=== PATIENT | male | born 1980 | race American Indian/Alaskan Native ===

== ENCOUNTER 2019-02-28 22:52 | Emergency (ER) | payer OTHER ==
--- NOTE | 2019-02-28 22:57 | Emergency Department Report ---
Stated Complaint: LEFT PINKY PAIN/L ARM LACERATION Time Seen by Provider: 02/28/19 22:57 - HPI History of Present Illness: SP FALL FROM SEVERAL INCHES CO L ELBOW PAIN/LAC AND L 5TH DIGIT PAIN RX NONE MSE COMPLETED MSE screening note: Focused history and physical exam performed. Due to findings the following was ordered: ED Disposition for MSE Condition: Stable
[2019-02-28] MEDS ORDERED: TRIPLE ANTIBIOTIC TP ONE (22:58)
[2019-02-28] MEDS ORDERED: XYLOCAINE 1% 20 mL INFILTRATI ONE (22:58)
[2019-02-28] MEDS ORDERED: BOOSTRIX IM ONE (22:58)
[2019-02-28] MEDS ORDERED: NACL 0.9% IR ONE (22:58)
[2019-03-01] MEDS ORDERED: BOOSTRIX IM ONE (01:43)
[2019-03-01] MEDS ORDERED: NACL 0.9% 500 ML IR ONE (01:43)
[2019-03-01] MEDS ORDERED: TRIPLE ANTIBIOTIC TP ONE (01:43)
[2019-03-01] MEDS ORDERED: XYLOCAINE 1% 20 mL ONE (01:45)
[2019-03-01] MEDS ORDERED: PERCOCET 5/325 PO ONE (02:09)
--- NOTE | 2019-03-01 02:29 | Emergency Department Report ---
ED Fall HPI - General Chief Complaint: Fall Stated Complaint: LEFT PINKY PAIN/L ARM LACERATION Time Seen by Provider: 02/28/19 22:57 Source: patient Mode of arrival: Ambulatory - History of Present Illness Initial Comments: 38-year-old -[place] male reports that he fell off a ladder 3 steps off the ground while at work. Patient sustained a left forearm laceration and left pinky pain. Patient reports no past medical history currently takes no medications on a daily basis and has no known drug allergies. MD Complaint: fall -: This afternoon Fall From: standing, down stairs (#) (3) When Fall Occurred: just prior to arrival Fall Witnessed: yes, by bystander Place Fall Occurred: work Loss of Consciousness: none Prolonged Down Time?: no Symptoms Prior to Fall: none Location - Extremities: Left: Arm Severity: severe Severity scale (0 -10): 8 Quality: burning, aching - Related Data Previous Rx's Medication Instructions Recorded Last Taken Type Acetaminophen/Codeine 1 tab PO Q6H PRN #15 tab 10/30/14 Unknown Rx [Acetaminophen-Codeine #3 TAB] Cephalexin [Keflex] 500 mg PO BID #14 capsule 03/01/[address] [Trini Tamez] 75 mg PO TID #21 tablet 03/01/19 Unknown Rx Allergies Allergy/AdvReac Type Severity Reaction Status Date / Time No Known Allergies Allergy Unverified 10/30/14 00:33 ED Review of Systems ROS: Stated complaint: LEFT PINKY PAIN/L ARM LACERATION Other details as noted in HPI Comment: All other systems reviewed and negative ED Past Medical Hx - Past Medical History Previous Medical History?: No - Surgical History Past Surgical History?: No - Social History Smoking Status: Current Every Day Smoker Substance Use Type: None - Medications Home Medications: Home Medications Medication Instructions Recorded Confirmed Last Taken Type Acetaminophen/Codeine 1 tab PO Q6H PRN #15 tab 10/30/14 Unknown Rx [Acetaminophen-Codeine #3 TAB] Cephalexin [Keflex] 500 mg PO BID #14 capsule 03/01/[address] [Voltaren Dr] 75 mg PO TID #21 tablet 03/01/19 Unknown Rx ED Physical Exam - General Limitations: No Limitations General appearance: alert, in no apparent distress - Head Head exam: Present: atraumatic, normocephalic - Eye Eye exam: Present: normal appearance, PERRL Pupils: Present: normal accommodation - ENT ENT exam: Present: mucous membranes moist - Neck Neck exam: Present: normal inspection - Respiratory Respiratory exam: Present: normal lung sounds bilaterally. Absent: respiratory distress - Cardiovascular Cardiovascular Exam: Present: regular rate, normal rhythm. Absent: systolic murmur, diastolic murmur, rubs, gallop - GI/Abdominal GI/Abdominal exam: Present: soft, normal bowel sounds - Expanded Upper Extremity Exam Left Shoulder Exam: Present: normal inspection, full ROM Upper Arm exam: Present: normal inspection, full ROM Elbow exam: Present: full ROM, tenderness, swelling, laceration Hand Wrist exam: Present: tenderness (5 th digit), swelling (fifth digit) Neurosensory exam: Present: radial nerve intact, ulnar nerve intact, median nerve intact Vascular: Present: normal capillary refill. Absent: vascular compromise - Back Exam Back exam: Present: normal inspection - Neurological Exam Neurological exam: Present: alert, oriented X3 - Psychiatric Psychiatric exam: Present: normal affect, normal mood - Skin Skin exam: Present: warm, dry, intact, normal color. Absent: rash ED Course Vital Signs 02/28/19 22:58 Temperature 98 F Pulse Rate 72 Respiratory 18 Rate Blood Pressure 139/94 O2 Sat by Pulse 98 Oximetry - Laceration /Wound Repair Left Elbow Wound Location: upper extremity Wound Length (cm): 3 Wound's Depth, Shape: into muscle, flap Wound Explored: no foreign body removed Irrigated w/ Saline (ccs): 250 Betadine Prep?: Yes Anesthesia: 1% Lidocaine Volume Anesthetic (ccs): 8 Wound Debrided: moderate Wound Repaired With: sutures Suture Size/Type: 3:0, proline Number of Sutures: 8 Sterile Dressing Applied?: Yes (compression dressing) Progress: Tolerated it well ED Medical Decision Making - Radiology Data Radiology results: report reviewed Patient: ILIA GARCIA MR#: [id number] : 1980 Acct:[id number] Age/Sex: 38 / M ADM Date: 02/28/19 Loc: ED Attending Dr: Ordering Physician: ALEX SOLORZANO Date of Service: 02/28/19 Procedure(s): XR hand 2V LT Accession Number(s): [id number] cc: ALEX SOLORZANO Fluoro Time In Minutes: PROCEDURE: LEFT HAND, 3 VIEWS TECHNIQUE: LEFT hand radiographs, AP, lateral, and oblique views. CPT 69862 HISTORY: Pain COMPARISONS: None . FINDINGS: Fracture (s) and/or Dislocation(s): None . Alignment: Normal . Joint space(s): Normal . Soft tissues: Normal . Bone mineralization: Normal . Foreign bodies: None . IMPRESSION: Normal Examination . This document is electronically signed by Larissa Hurley MD., March 01 2019 02:39:08 AM ET Transcribed By: CO Dictated By: LARISSA HURLEY MD Electronically Authenticated By: LARISSA HURLEY MD Signed Date/Time: 03/01/19 0240 Patient: ILIA GARCIA MR#: [id number] : 1980 Acct:[id number] Age/Sex: 38 / M ADM Date: 02/28/19 Loc: ED Attending Dr: Ordering Physician: ALEX SOLORZANO Date of Service: 02/28/19 Procedure(s): XR elbow 3+V LT Accession Number(s): [id number] cc: ALEX SOLORZANO Fluoro Time In Minutes: PROCEDURE: LEFT ELBOW, 3 VIEWS TECHNIQUE: LEFT elbow radiographs, including AP, lateral, and oblique views. CPT 04636 HISTORY: Trauma COMPARISONS: None . FINDINGS: Fracture (s) and/or Dislocation(s): None . Alignment: Normal . Joint space(s): Normal . Soft tissues: Normal . Bone mineralization: Normal . Foreign bodies: None . IMPRESSION: Normal Examination . This document is electronically signed by Larissa Hurley MD., March 01 2019 03:04:56 AM ET Transcribed By: CO Dictated By: LARISSA HURLEY MD Electronically Authenticated By: LARISSA HURLEY MD Signed Date/Time: 03/01/19305 DD/ 37 TD/TT: 02/28/192337 DD/ 35 TD/TT: 02/28/192335 - Medical Decision Making Patient has been evaluated by this provider in fast track. X-ray of left elbow and left hand shows normal examination Patient sustain a laceration 3 cm will be sutured up Patient's given Percocet 2 tabs by mouth for pain management Patient be discharged home on Keflex and pain medication. Patient to follow-up in 7-10 days to have sutures removed. Critical care attestation.: If time is entered above; I have spent that time in minutes in the direct care of this critically ill patient, excluding procedure time. ED Disposition Clinical Impression: Hand pain, left Fall Qualifiers: Encounter type: initial encounter Qualified Code(s): W19.XXXA - Unspecified fall, initial encounter Laceration of elbow, left Qualifiers: Encounter type: initial encounter Qualified Code(s): S51.012A - Laceration without foreign body of left elbow, initial encounter Disposition: TO HOME OR SELFCARE Is pt being admited?: No Does the pt Need Aspirin: No Condition: Stable Instructions: Fall Prevention (ED), Suture Care (ED), Laceration (ED) Additional Instructions: Please take pain medication as needed. Complete antibiotics as prescribed. Follow-up in emergency room in 7-10 days to have sutures removed. Prescriptions: Cephalexin [Keflex] 500 mg PO BID #14 capsule Diclofenac [Voltaren ] 75 mg PO TID #21 tablet Referrals: PRIMARY CARE, [Primary Care Provider] - 3-5 Days Forms: Work/School Release Form(ED)
--- NOTE | 2019-03-01 02:40 | XRay Report ---
PROCEDURE: LEFT HAND, 3 VIEWS TECHNIQUE: LEFT hand radiographs, AP, lateral, and oblique views. CPT 67541 HISTORY: Pain COMPARISONS: None . FINDINGS: Fracture (s) and/or Dislocation(s): None . Alignment: Normal . Joint space(s): Normal . Soft tissues: Normal . Bone mineralization: Normal . Foreign bodies: None . IMPRESSION: Normal Examination . This document is electronically signed by Seamus López MD., March 01 2019 02:39:08 AM ET
--- NOTE | 2019-03-01 03:06 | XRay Report ---
PROCEDURE: LEFT ELBOW, 3 VIEWS TECHNIQUE: LEFT elbow radiographs, including AP, lateral, and oblique views. CPT 57919 HISTORY: Trauma COMPARISONS: None . FINDINGS: Fracture (s) and/or Dislocation(s): None . Alignment: Normal . Joint space(s): Normal . Soft tissues: Normal . Bone mineralization: Normal . Foreign bodies: None . IMPRESSION: Normal Examination . This document is electronically signed by Seamus López MD., March 01 2019 03:04:56 AM ET
[2019-03-01 04:31] VITALS: BP 144/89
== END 2019-03-01 04:30 | disposition home or self-care (01) ==
LOC: ED 22:52
DX: S51.012A Laceration without foreign body of left elbow, initial encounter (principal); F17.200 Nicotine dependence, unspecified, uncomplicated; W11.XXXA Fall on and from ladder, initial encounter; Y93.89 Activity, other specified; Y92.89 Other specified places as the place of occurrence of the external cause; Y99.8 Other external cause status
CPT/HCPCS: 90471; 90715; 99283; A6250